=== PATIENT | male | born 1960 | race Caucasian/White ===

== ENCOUNTER 2020-04-24 07:12 | Day surgery (SDC) | payer BC, OTHER ==
[~2020-04-24 07:12] MED LIST: Lactated Ringers 1,000 ML IV SCH
[2020-04-24] MEDS ORDERED: fentaNYL 100 MCG/2 ML SDV ONE (08:02)
[2020-04-24] MEDS ORDERED: Propofol 200 MG/20 ML SDV ONE ×2 (08:02→08:51)
--- NOTE | 2020-04-24 13:25 | OR ---
DATE OF SURGERY: 04/24/2020. REFERRING PROVIDER: Dante Garcia MD PRE-OPERATIVE DIAGNOSES: 1. Rectal bleeding. 2. Positive family history of colon cancer in sister diagnosed in her late 30s. POST-OPERATIVE DIAGNOSES: 1. Mild diverticulosis. 2. Minimal hemorrhoids, not acutely inflamed. 3. Normal-appearing distal ileum. PROCEDURE: Colonoscopy. SURGEON: Shravan Healy M.D. ANESTHESIA: Monitored anesthesia care. BOWEL PREP: Good. Angel is a 60-year-old male who was brought to the endoscopy suite after discussing risks and benefits of the procedure. Informed consent was obtained for conscious sedation and colonoscopy with or without biopsy and/or polypectomy. We also discussed possibility of missed lesions. Pre-procedure exam was unremarkable. IV, oxygen, and monitors were placed. The patient was placed in the left lateral decubitus position. Sedation was administered and a digital rectal exam was performed and unremarkable. Colonoscope was passed into the rectum and slowly advanced all the way to the cecum. Cecum was viewed and photographed. Ileocecal valve was intubated and distal ileum was normal in appearance. The colonoscope was slowly withdrawn and the mucosa was closed observed in a direct circumferential manner. The ascending colon was unremarkable. The transverse colon was unremarkable. The descending colon was unremarkable. The sigmoid colon revealed some mild diverticulosis. Retroflexion was performed and rectal mucosa was unremarkable except for some minimal hemorrhoids, not acutely inflamed. Scope was removed. The patient tolerated the procedure well. The patient was monitored until that baseline status. Discharge instructions were reviewed and the patient was discharged in good condition. COMPLICATIONS: None. TOTAL TIME: 14 minutes. ESTIMATED BLOOD LOSS: None. RECOMMENDATIONS/FOLLOW-UP: Would recommend repeat colonoscopy in 5 years given the patient's positive family history of colon cancer. I would like to kindly thank Dante Garcia for this referral. DMB: 04/24/2020 09:34:26 MODL: 04/24/2020 12:47:32 /[id number]
== END 2020-04-24 10:40 | disposition home or self-care (01) ==
LOC: VM.SDS 07:12
PROVIDERS: ATTEND Family Medicine
DX: K57.30 Diverticulosis of large intestine without perforation or abscess without bleeding (principal); K64.9 Unspecified hemorrhoids; K62.5 Hemorrhage of anus and rectum; E66.9 Obesity, unspecified; K21.9 Gastro-esophageal reflux disease without esophagitis; N41.0 Acute prostatitis; R35.0 Frequency of micturition; M16.0 Bilateral primary osteoarthritis of hip; G47.33 Obstructive sleep apnea (adult) (pediatric); E78.1 Pure hyperglyceridemia; Z80.0 Family history of malignant neoplasm of digestive organs; Z01.812 Encounter for preprocedural laboratory examination; Z20.828 Contact with and (suspected) exposure to other viral communicable diseases; Z79.82 Long term (current) use of aspirin; Z68.37 Body mass index [BMI] 37.0-37.9, adult; Z79.899 Other long term (current) drug therapy
CPT/HCPCS: 00811; J2704; J3010; J7120; U0002

== ENCOUNTER 2020-05-20 22:20 | Emergency (ER) | payer OTHER ==
--- NOTE | 2020-05-20 22:45 | EDM.PDOC ---
ED HPI GENERAL MEDICAL PROBLEM - General Chief Complaint: Fever Stated Complaint: Fever, recent cath insertion, total right hip Time Seen by Provider: 05/20/20 22:32 Source of Information: Reports: Patient, Family - History of Present Illness INITIAL COMMENTS - FREE TEXT/NARRATIVE: Angel is a 60 y/o male who comes to the ER tonight with report of chills and then feeling hot around 6 pm. He had a temp earlier at home in the 101-102 range. His gave him Tylenol prior to arriving here. He is post op from a right hip surgery that was done on Tuesday. While in the recovery room, he was found to have urinary retention and a winn catheter was placed. The plan is to leave the winn in 1 week, then remove it. He felt warm tonight. He is currently taking Bactrim for a hx of MRSA. - Related Data Allergies Allergy/AdvReac Type Severity Reaction Status Date / Time No Known Allergies Allergy Verified 04/24/20 07:44 Home Meds: Home Meds Aspirin [Aspirin EC] 81 mg PO DAILY 04/16/20 [History] Levothyroxine [Synthroid] 50 mcg PO DAILY 04/16/20 [History] Multivitamin 1 each PO DAILY 04/16/20 [History] Omeprazole 20 mg PO DAILY 04/16/20 [History] Sildenafil [Viagra] 100 mg PO BEDTIME PRN 04/16/20 [History] Sulfamethoxazole/Trimethoprim [Bactrim Ds Tablet] 1 tab PO BID 04/16/20 [History] Tamsulosin HCl 1 cap PO DAILY 04/16/20 [History] Testosterone Cypionate 300 mg IM ASDIRECTED 04/16/20 [History] gemfibroziL [Gemfibrozil] 600 mg PO DAILY 04/16/20 [History] Past Medical History Cardiovascular History: Reports: High Cholesterol Respiratory History: Reports: Sleep Apnea Gastrointestinal History: Reports: GERD Other Gastrointestinal History: family hx of colon cancer Other Genitourinary History: psychosexual dysfunction with inhibited sexual excitement. low testosterone. prostatitis Musculoskeletal History: Reports: Osteoarthritis Endocrine/Metabolic History: Reports: Obesity/BMI 30+ Other Endocrine/Metabolic History: hyperglycemia Other Dermatologic History: supportive hidradenitis Review of Systems - Review of Systems Review Of Systems: See Below Constitutional: Reports: No Symptoms, Chills, Fever Eyes: Reports: No Symptoms Ears: Reports: No Symptoms Nose: Reports: No Symptoms Mouth/Throat: Reports: No Symptoms Respiratory: Reports: No Symptoms Cardiovascular: Reports: No Symptoms GI/Abdominal: Reports: No Symptoms Genitourinary: Reports: Other (winn intact) Musculoskeletal: Reports: No Symptoms Skin: Reports: No Symptoms Neurological: Reports: No Symptoms Psychiatric: Reports: No Symptoms ED EXAM, GENERAL - Physical Exam Exam: See Below General Appearance: Alert, WD/WN, No Apparent Distress (Adult male, sitting in wheelchair) Ears: Hearing Grossly Normal Nose: Normal Inspection, Normal Mucosa Throat/Mouth: Normal Inspection, Normal Teeth, Normal Voice Head: Atraumatic Neck: Normal Inspection, Supple, Non-Tender Respiratory/Chest: No Respiratory Distress, Lungs Clear, Normal Breath Sounds, Chest Non-Tender Cardiovascular: Regular Rate, Rhythm GI/Abdominal: Normal Bowel Sounds, Soft, Non-Tender (Male) Exam: Other (Winn draining clear yellow urine) Rectal (Males) Exam: Deferred Back Exam: Normal Inspection. No: CVA Tenderness (L), CVA Tenderness (R) Extremities: Normal Inspection, Normal Range of Motion, Normal Capillary Refill Neurological: Alert, Oriented, CN II-XII Intact, Normal Cognition, No Motor/Sensory Deficits Psychiatric: Normal Affect, Normal Mood Skin Exam: Warm, Dry, Intact, Normal Color, Wound/Incision (right posterior hip surgical incision, slightly brusied, no drainage-dressing removed and steri strips replaced along with new island dressing placed) Lymphatic: No Adenopathy Course - Vital Signs Text/Narrative:: 2231 The patient was seen by the [facility] [facility]. Labs done. - Orders/Labs/Meds Orders: Active Orders 24 hr Category Date Time Status CBC WITH AUTO DIFF [HEME] Stat Lab 05/20/20 22:37 Ordered COMPREHENSIVE METABOLIC PN,CMP [CHEM] Stat Lab 05/20/20 22:38 Ordered CRP [C-REACTIVE PROTEIN] [CHEM] Stat Lab 05/20/20 22:38 Ordered CULTURE BLOOD [BC] Stat Lab 05/20/20 22:39 Ordered CULTURE BLOOD [BC] Stat Lab 05/20/20 22:39 Ordered LACTIC ACID [CHEM] Stat Lab 05/20/20 22:39 Ordered UA RFX BRODY AND CULT IF INDIC [URIN] Stat Lab 05/20/20 22:38 Ordered Blood Culture x2 Reflex Set [OM.PC] Stat Oth 05/20/20 22:39 Ordered Departure - Departure Time of Disposition: 23:46 Disposition: Home, Self-Care 01 Condition: Good Clinical Impression: Postoperative fever, Status post total hip replacement, right, Urinary retentio n, Indwelling Winn catheter present, Hx MRSA infection - Discharge Information *PRESCRIPTION DRUG MONITORING PROGRAM REVIEWED*: No *COPY OF PRESCRIPTION DRUG MONITORING REPORT IN PATIENT TANVIR: No Instructions: Acute Urinary Retention, Male, [id number] Additional Instructions: -Continue post op cares as instructed -Monitor temperature and other symptoms and report to surgeon or return to ER -Keep all post op appts -Call the ER or your PCP with any concerns - My Orders Last 24 Hours: My Active Orders 05/20/20 22:37 CBC WITH AUTO DIFF [HEME] Stat 05/20/20 22:38 COMPREHENSIVE METABOLIC PN,CMP [CHEM] Stat CRP [C-REACTIVE PROTEIN] [CHEM] Stat UA RFX BRODY AND CULT IF INDIC [URIN] Stat 05/20/20 22:39 CULTURE BLOOD [BC] Stat CULTURE BLOOD [BC] Stat LACTIC ACID [CHEM] Stat Blood Culture x2 Reflex Set [OM.PC] Stat - Assessment/Plan Last 24 Hours: My Active Orders 05/20/20 22:37 CBC WITH AUTO DIFF [HEME] Stat 05/20/20 22:38 COMPREHENSIVE METABOLIC PN,CMP [CHEM] Stat CRP [C-REACTIVE PROTEIN] [CHEM] Stat UA RFX BRODY AND CULT IF INDIC [URIN] Stat 05/20/20 22:39 CULTURE BLOOD [BC] Stat CULTURE BLOOD [BC] Stat LACTIC ACID [CHEM] Stat Blood Culture x2 Reflex Set [OM.PC] Stat Assessment:: 1)Post Op Fever 2)S/P Right Total Hip Arthroplasty 3)Urinary Retention 4)Indwelling Winn Catheter 5)Hx MRSA-currently on Bactrim Plan: -Discharge home -CBC, CMP, UA, and UCx done -Continue post op cares
[2020-05-20 23:40] LABS: CHLORIDE,CL 101 mmol/L (98-107); SODIUM,NA 136 mmol/L (136-145)
[2020-05-20 23:41] LABS: ANION GAP 16.2 mmol/L (10-20)
== END 2020-05-20 23:52 | disposition home or self-care (01) ==
LOC: VM.ED 22:20
DX: R50.82 Postprocedural fever (principal); R33.9 Retention of urine, unspecified; K21.9 Gastro-esophageal reflux disease without esophagitis; M19.90 Unspecified osteoarthritis, unspecified site; E66.9 Obesity, unspecified; Z68.38 Body mass index [BMI] 38.0-38.9, adult; Z86.14 Personal history of Methicillin resistant Staphylococcus aureus infection; Z79.82 Long term (current) use of aspirin; Z96.641 Presence of right artificial hip joint; Z79.899 Other long term (current) drug therapy
CPT/HCPCS: 36415; 80053; 81001; 83605; 85025; 86140; 87040; 87086; 99283; 99283-25

== ENCOUNTER 2024-06-05 16:04 | Emergency (ER) | payer OTHER ==
[2024-06-05] MEDS: Lidocaine 1% 10 ML MDV INJECT ONE (17:00)
== END 2024-06-05 17:25 | disposition home or self-care (01) ==
LOC: VM.ED 16:04
DX: S61.211A Laceration without foreign body of left index finger without damage to nail, initial encounter (principal); E78.00 Pure hypercholesterolemia, unspecified; K21.9 Gastro-esophageal reflux disease without esophagitis; M19.90 Unspecified osteoarthritis, unspecified site; E66.9 Obesity, unspecified; Z68.38 Body mass index [BMI] 38.0-38.9, adult; Z88.2 Allergy status to sulfonamides; Z79.82 Long term (current) use of aspirin; Z79.899 Other long term (current) drug therapy; W27.5XXA Contact with paper-cutter, initial encounter
CPT/HCPCS: 12001; 99282; J3490